=== PATIENT | female | born 1935 | race Caucasian/White ===

== ENCOUNTER 2020-10-27 15:14 | Emergency (ER) | payer OTHER, MEDICARE ==
[~2020-10-27] VITALS: Ht 152.4 cm; Wt 43.1 kg
[2020-10-27] MEDS ORDERED: ELIQUIS5 MG PO (15:35)
[2020-10-27] MEDS ORDERED: FUROSEMIDE 20 M20 MG PO (15:36)
[2020-10-27] MEDS ORDERED: MINIVELLE1 EAC1 TOP (15:36)
[2020-10-27] MEDS ORDERED: LOPERAMIDE2 MG PO (15:37)
[2020-10-27] MEDS ORDERED: TIZANIDINE HCL2 M1 PO (15:37)
[2020-10-27] MEDS ORDERED: HYOSCYAMINE0.125 MG PO (15:37)
[2020-10-27] MEDS ORDERED: LOPRESSOR50 MG PO (15:37)
[2020-10-27] MEDS ORDERED: ROPINIROLE HCL0.5 MG PO (15:38)
[2020-10-27 16:02] LABS: ABSOLUTE NEUTROPHILS 4.7 thou/uL (1.4-8.2); BASOPHILS 0.4 % (0.0-2.0); EOSINOPHILS 0.2 % (0.0-3.0); HEMATOCRIT 42.2 % (37.0-47.0); HEMOGLOBIN 14.1 gm/dL (12.0-15.0); LYMPHOCYTES 14.3 % (24.0-44.0); MCH 34.7 pg (26.0-34.0); MCHC 33.4 g/dL (28.0-37.0); MCV 104.1 fL (80.0-100.0); PLATELET COUNT 184 thou/uL (150-400); POLYS 70.1 % (36.0-66.0); RBC 4.05 mil/uL (4.20-5.00); RDW 13.3 % (10.5-14.5); WBC 6.7 thou/uL (4.0-11.0)
[2020-10-27 17:49] LABS: CALCIUM 8.9 mg/dL (8.5-10.1); CREATININE 1.2 mg/dL (0.6-1.0)
[2020-10-27 17:55] LABS: POTASSIUM 5.1 mmol/L (3.5-5.1)
[2020-10-27 18:29] VITALS: BP 149/85
--- NOTE | 2020-10-29 07:59 | EKG ---
[place] [address] [facility] [place] [address] ELECTROCARDIOGRAM REPORT Name: ZORAN ALEXANDER Room #: DEP KIN Rodriguez#: [id number] Admission: 10/27/20 Attend Phys: Discharge: 10/27/20 Date of : 37 Report #: [id number] [facility] ED Test Date: 2020-10-27 Test Time: 15:36:58 Pat Name: ZORAN ALEXANDER Department: Room: Gender: F Civil Engineer: JAIMIE : [id number] Requested By: Lj Benítez Order Number: [id number] MD: Balwinder Membreno Measurements Intervals [place] Rate: 95 P: PA: QRS: -9 QRSD: 90 T: -57 QT: 360 QTc: 453 Interpretive Statements Atrial fibrillation Ventricular premature complex Nonspecific repol abnormality, diffuse leads No previous ECG available for comparison Electronically Signed On 10-29-2020 7:58:58 CDT by Balwinder Membreno [email or web address] <ELECTRONICALLY SIGNED> By: Balwinder Membreno MD, [facility] 10/29/20 [id number] Balwinder Membreno MD, FACC /EPI
== END 2020-10-27 18:29 | disposition home or self-care (01) ==
LOC: EDBD 15:14 → ER 15:14
PROVIDERS: Nurse Practitioner
DX: S01.511A Laceration without foreign body of lip, initial encounter (principal); R07.89 Other chest pain; Z79.899 Other long term (current) drug therapy; Z79.891 Long term (current) use of opiate analgesic; Z88.5 Allergy status to narcotic agent; Z88.0 Allergy status to penicillin; W06.XXXA Fall from bed, initial encounter; Y93.89 Activity, other specified; Y92.89 Other specified places as the place of occurrence of the external cause; Y99.8 Other external cause status